=== PATIENT | male | born 1935 | race Caucasian/White ===

== ENCOUNTER 2017-10-27 17:16 | Inpatient (IN) ==
[2017-10-27] MEDS ORDERED: PIPERACILLIN/TAZOBACTAM 3,375 MG in SODIUM CHLORIDE 0.9% 100 ML IV STA (18:13)
[2017-10-27] MEDS ORDERED: ONDANSETRON 4 MG/2 ML VIAL IV STA (18:13)
[2017-10-27] MEDS ORDERED: MORPHINE 4 MG/1 ML VIAL IV STA (18:13)
[2017-10-27 19:15] LABS: Basophils % 0.3 % (0.0-0.8); Eosinophils # 0.1 10*3/uL (0.0-0.87); Eosinophils % 0.9 % (0.00-10.9); Hematocrit 41.3 VOL% (42.0-52.0); Hemoglobin 13.8 GM/DL (14.0-18.0); Immature Granulocytes % 0.3 %; Immature Granulocytes Absolute 0.02 #; Lymphocytes # 1.3 10*3/uL (1.4-4.0); Lymphocytes % 19.5 % (21.2-54.2); Mean Corpuscular HGB Conc 33.4 GM/DL (32-36); Mean Corpuscular Hemoglobin 29 PG (27-34); Mean Corpuscular Volume 85.2 FL (87-102); Mean Platelet Volume 10.7 FL (9.6-12.0); Monocytes # 0.7 10*3/uL (0.11-0.8); Monocytes % 10.9 % (1.7-12.7); Neutrophils # 4.5 10*3/uL (1.4-7.4); Neutrophils % 68.1 % (38.7-73.9); Platelet Count 310 T/CUMM (130-400); Red Blood Count 4.85 MC/CUMM (3.8-5.5); Red Cell Distribution Width 15.7 % (9.3-17.3); White Blood Count 6.6 T/CUMM (4-12)
[2017-10-27 19:28] LABS: INR 1.1; PT Patient Result 11.9 SECS
[2017-10-27 19:37] LABS: Alanine Aminotransferase 14 U/L (16-61); Albumin 3.3 G/DL (3.4-5.0); Alkaline Phosphatase 86 U/L (45-117); Aspartate Amino Transferase 18 U/L (0-37); Blood Urea Nitrogen 15 MG/DL (7-18); Calcium 8.8 MG/DL (8.5-10.1); Glucose 111 MG/DL (74-106); Osmolality,Calculated 276.7 MOS/KG (273-304); Potassium 4.2 MMOL/L (3.5-5.1); Sodium 138 MMOL/L (136-145); Total Protein 7.5 G/DL (6.4-8.3); Troponin I Only < 0.015 NG/ML (0.00-0.045)
[2017-10-27] MEDS ORDERED: SODIUM CHLORIDE 0.9% 100 ML IV ONE (20:11)
[2017-10-27] MEDS ORDERED: PIPERACILLIN/TAZOBACTAM 3,375 MG VIAL IV ONE (20:11)
[2017-10-27] MEDS ORDERED: MORPHINE 4 MG/1 ML VIAL IV PRN (20:43)
[2017-10-27] MEDS ORDERED: guaiFENesin/DM ER 600-30 MG TABLET PO PRN (20:43)
[2017-10-27] MEDS ORDERED: DOCUSATE SODIUM 100 MG CAPSULE PO PRN ×2 (20:43→20:47)
[2017-10-27] MEDS ORDERED: ONDANSETRON 4 MG/2 ML VIAL IV PRN (20:43)
[2017-10-27] MEDS ORDERED: ZALEPLON 5 MG CAPSULE PO PRN (20:43)
[2017-10-27] MEDS ORDERED: NITROGLYCERIN SL 0.4 MG TABLET SL PRN (20:47)
[2017-10-27] MEDS ORDERED: MECLIZINE 25 MG TABLET PO PRN (20:47)
[2017-10-27] MEDS ORDERED: ALBUTEROL/IPRATROPIUM 3 ML NEB RESP TX PRN (20:47)
[2017-10-27] MEDS: FUROSEMIDE 20 MG TABLET PO SCH (22:44)
[2017-10-27] MEDS: ATORVASTATIN 20 MG TABLET PO SCH (22:44)
[2017-10-27] MEDS: LATANOPROST 0.005% OPH SOLN 2.5 ML BOTTLE BOTH EYES SCH (22:45)
[2017-10-27] MEDS: SODIUM CHLORIDE 0.45% 1,000 ML IV SCH (22:45)
[2017-10-28 06:29] LABS: Basophils % 0.5 % (0.0-0.8); Eosinophils # 0.1 10*3/uL (0.0-0.87); Eosinophils % 1.5 % (0.00-10.9); Hemoglobin 12.5 GM/DL (14.0-18.0); Immature Granulocytes % 0.7 %; Immature Granulocytes Absolute 0.04 #; Lymphocytes % 17.1 % (21.2-54.2); Mean Corpuscular HGB Conc 32.9 GM/DL (32-36); Mean Corpuscular Hemoglobin 28 PG (27-34); Mean Corpuscular Volume 86.2 FL (87-102); Mean Platelet Volume 10.9 FL (9.6-12.0); Monocytes # 0.6 10*3/uL (0.11-0.8); Monocytes % 9.9 % (1.7-12.7); Neutrophils # 4.3 10*3/uL (1.4-7.4); Neutrophils % 70.3 % (38.7-73.9); Platelet Count 262 T/CUMM (130-400); Red Blood Count 4.41 MC/CUMM (3.8-5.5); Red Cell Distribution Width 15.7 % (9.3-17.3)
[2017-10-28] MEDS: ACETAMINOPHEN 325 MG TABLET PO PRN ×2 (06:38→20:53)
[2017-10-28 06:50] LABS: Calcium 8.2 MG/DL (8.5-10.1); Osmolality,Calculated 274.7 MOS/KG (273-304); Potassium 3.6 MMOL/L (3.5-5.1)
[2017-10-28] MEDS: PANTOPRAZOLE 40 MG TABLET PO SCH (09:51)
[2017-10-28] MEDS: ASPIRIN EC 81 MG TABLET PO SCH (09:51)
[2017-10-28] MEDS: amLODIPine 5 MG TABLET PO SCH (09:51)
[2017-10-28] MEDS: FUROSEMIDE 20 MG TABLET PO SCH ×2 (09:51→20:53)
[2017-10-28] MEDS: BENAZEPRIL 40 MG TABLET PO SCH (09:51)
[2017-10-28 12:54] LABS: Apearance,Urine CLEAR (Clear); Bacteria,Urine Occasional /HPF (Few); Bilirubin,Urine Negative (Negative); Blood, Urine Negative (Negative); Glucose,Urine (UA) Negative (Negative); Hyaline Casts,Urine 1 /LPF (0-3); Ketones,Urine Negative (Negative); Mucus,Urine Occasional /LPF (Occasional); Nitrite,Urine Negative (Negative); Protein,Urine Negative; RBC,Urine 1 /HPF (0-4); Squamous Epithelial Cell,Urine Occasional /HPF (0-10); Urine Color Yellow (Yellow); Urine Specific Gravity 1.014 (1.001-1.035); WBC,Urine 2 /HPF (0-6)
[2017-10-28] MEDS: SODIUM CHLORIDE 0.45% 1,000 ML IV SCH ×2 (16:18→23:40)
[2017-10-28] MEDS: ATORVASTATIN 20 MG TABLET PO SCH (20:53)
[2017-10-28] MEDS: LATANOPROST 0.005% OPH SOLN 2.5 ML BOTTLE BOTH EYES SCH (21:00)
[2017-10-29] MEDS: ACETAMINOPHEN 325 MG TABLET PO PRN (06:43)
[2017-10-29 06:49] LABS: INR 1.1; PT Patient Result 11.8 SECS
[2017-10-29] MEDS: PANTOPRAZOLE 40 MG TABLET PO SCH (10:03)
[2017-10-29] MEDS: amLODIPine 5 MG TABLET PO SCH (10:03)
[2017-10-29] MEDS: FUROSEMIDE 20 MG TABLET PO SCH ×2 (10:03→20:57)
[2017-10-29] MEDS: ASPIRIN EC 81 MG TABLET PO SCH (10:03)
[2017-10-29] MEDS: BENAZEPRIL 40 MG TABLET PO SCH (10:03)
[2017-10-29 14:08] LABS: Troponin I Only < 0.015 NG/ML (0.00-0.045)
[2017-10-29] MEDS: GABAPENTIN 100 MG CAPSULE PO SCH ×2 (19:40→21:00)
[2017-10-29] MEDS: ACETAMINOPHEN 325 MG TABLET PO SCH ×2 (19:40→20:57)
[2017-10-29] MEDS: ATORVASTATIN 20 MG TABLET PO SCH (20:57)
[2017-10-29] MEDS: LATANOPROST 0.005% OPH SOLN 2.5 ML BOTTLE BOTH EYES SCH (21:08)
[2017-10-30 03:51] VITALS: BP 124/75
[2017-10-30] MEDS: SODIUM CHLORIDE 0.45% 1,000 ML IV SCH (04:53)
[2017-10-30 06:55] LABS: INR 1.1
[2017-10-30] MEDS: ASPIRIN EC 81 MG TABLET PO SCH (08:45)
[2017-10-30] MEDS: FUROSEMIDE 20 MG TABLET PO SCH (08:45)
[2017-10-30] MEDS: BENAZEPRIL 40 MG TABLET PO SCH (08:45)
[2017-10-30] MEDS: ACETAMINOPHEN 325 MG TABLET PO SCH (08:46)
[2017-10-30] MEDS: amLODIPine 5 MG TABLET PO SCH (08:46)
[2017-10-30] MEDS: PANTOPRAZOLE 40 MG TABLET PO SCH (08:46)
[2017-10-30] MEDS: GABAPENTIN 100 MG CAPSULE PO SCH (08:48)
[2017-10-30] MEDS ORDERED: APIXABAN 2.5 MG TABLET PO SCH (09:00)
== END 2017-10-30 10:02 | disposition home or self-care (01) | DRG 200 ==
LOC: N.ED 17:16 → N.EDINP 19:36 → N.5E 20:53